=== PATIENT | female | born 1995 | race Caucasian/White ===

== ENCOUNTER 2019-06-04 16:27 | Emergency (ER) | payer MEDICAID ==
[2019-06-04 16:37] VITALS: BP 139/101
--- NOTE | 2019-06-04 17:08 | XRAY Report ---
Reason: pain and swelling from twisting it 2 days ago Procedure Date: 06/04/2019 Accession Number: [id number] / [id number] Procedure: XR - Ankle 3 View RT CPT Code: FULL RESULT: EXAM: RIGHT ANKLE RADIOGRAPHY EXAM DATE: 06/04/2019 04:53 PM. CLINICAL HISTORY: Pain and swelling from twisting it 2 days ago. COMPARISON: None. TECHNIQUE: 3 views. FINDINGS: Bones: Normal. No fractures or bone lesions. Joints: Normal. No effusion. No subluxations. The ankle mortise is normally aligned. Soft Tissues: Soft tissue swelling. IMPRESSION: Normal ankle radiography. [facility]
--- NOTE | 2019-06-04 17:10 | ED Physician Documentation ---
PD HPI LOWER EXT INJURY - Stated complaint Stated Complaint: RT ANKLE INJ - Chief complaint Chief Complaint: Trauma Ext - History obtained from History obtained from: Patient - History of Present Illness PD HPI LOW EXT INJURY LOCATION: Right, Ankle Type of injury: Twist Where injury occurred: Street Timing - onset: How many days ago (2) Worsened by: Palpating, Other (weight bearing) Associated symptoms: Swelling Similar symptoms before: Has not had sx before - Additional information Additional information: Patient is a 24-year-old female who twisted her right ankle 2 days ago and has had pain with weightbearing since that time. She denies any other injuries. She denies prior history of ankle injury. Review of Systems Constitutional: denies: Fever Skin: denies: Abrasion (s) Musculoskeletal: reports: Joint pain (right ankle). denies: Back pain Neurologic: denies: Focal weakness, Numbness PD PAST MEDICAL HISTORY - Past Medical History Past Medical History: No Endocrine/Autoimmune: None - Past Surgical History Past Surgical History: No - Allergies Allergies/Adverse Reactions: Allergies Allergy/AdvReac Type Severity Reaction Status Date / Time No Known Drug Allergies Allergy Verified 06/04/19 16:37 - Social History Does the pt smoke?: No Smoking Status: Never smoker PD ED PE NORMAL - Vitals Vital signs reviewed: Yes (hypertensive) - General General: Alert and oriented X 3, Well developed/nourished - HEENT HEENT: Atraumatic - Respiratory Respiratory: No respiratory distress - Extremities Extremities: No edema, No calf tenderness / cord, Other (There is slight swelling and tenderness to palpation at the lateral aspect of the right ankle. There is no tenderness at the medial malleolus, the fifth metatarsal base, or the proximal fibula. Distal neurovascular is intact.) - Neuro Neuro: Alert and oriented X 3, No motor deficit, No sensory deficit Results - Vitals Vitals: Vital Signs - 24 hr 06/04/19 16:34 Temperature 36.6 C Heart Rate 106 H Respiratory 16 Rate Blood Pressure 139/101 H O2 Saturation 96 Oxygen O2 Source Room air - Rads (name of study) Right ankle Radiology: Prelim report reviewed, EMP read contemporaneously, See rad report (Normal ankle radiography.) PD MEDICAL DECISION MAKING - ED course Complexity details: reviewed results, re-evaluated patient, considered differential, d/w patient, d/w family ED course: The patient's presentation is most consistent with ankle sprain. There is no evidence of fracture or dislocation on radiographic imaging. Treatment in the emergency department included application of an ankle air splint. Ibuprofen 800 mg was administered orally. I discussed with the patient the expected course of injury, symptomatic treatment and outpatient follow-up, as well as potentially worrisome signs or symptoms that should prompt reevaluation in the emergency department. Departure - Departure Disposition: 01 Home, Self Care Clinical Impression: Ankle sprain Qualifiers: Encounter type: initial encounter Involved ligament of ankle: posterior talofibular ligament Laterality: right Qualified Code(s): S93.491A - Sprain of other ligament of right ankle, initial encounter Condition: Stable Instructions: ED Sprain Ankle W X Ray Comments: Keep your right leg elevated as much the time as possible. Apply ice pack to your right ankle intermittently for the next 3 days. You can use ibuprofen, up to 800 mg 3 times daily if needed for pain. Let pain be your guide to activity level. Follow-up with your primary physician within 2 weeks if not completely resolved. Call to schedule appointment. Return to the emergency department if you develop increasing pain or swelling, or otherwise worsening symptoms.
[2019-06-04] MEDS ORDERED: IBUPROFEN 800 MG TABLET PO STA (17:14)
== END 2019-06-04 17:32 | disposition home or self-care (01) ==
LOC: ED 16:27
DX: S93.491A Sprain of other ligament of right ankle, initial encounter (principal); X50.1XXA Overexertion from prolonged static or awkward postures, initial encounter; Y92.410 Unspecified street and highway as the place of occurrence of the external cause
CPT/HCPCS: 73610; 99283; A9270